=== PATIENT | female | born 1960 | race Caucasian/White ===

== ENCOUNTER 2018-04-08 19:45 | Emergency (ER) | payer BC ==
[~2018-04-08] VITALS: Ht 167.6 cm; Wt 69.7 kg
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
[2018-04-08] MEDS ORDERED: HYDR-79 PO (20:26)
[2018-04-08] MEDS ORDERED: CYCL-331 PO (20:26)
[2018-04-08] MEDS ORDERED: ACETAMINOPHEN 500 MG TABLET PO ONE (20:30)
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
[2018-04-08 21:54] VITALS: BP 125/66
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
== END 2018-04-08 21:55 | disposition home or self-care (01) ==
LOC: ER 19:45
DX: S13.9XXA Sprain of joints and ligaments of unspecified parts of neck, initial encounter (principal); S33.5XXA Sprain of ligaments of lumbar spine, initial encounter; Z88.2 Allergy status to sulfonamides; Z88.1 Allergy status to other antibiotic agents; Z88.8 Allergy status to other drugs, medicaments and biological substances; V59.49XA Driver of pick-up truck or van injured in collision with other motor vehicles in traffic accident, initial encounter; Y93.I9 Activity, other involving external motion; Y92.488 Other paved roadways as the place of occurrence of the external cause; Y99.8 Other external cause status
CPT/HCPCS: 71046; 72125; 72131; 99284